=== PATIENT | female | born 1980 | race Caucasian/White ===

== ENCOUNTER 2016-07-15 10:22 | Inpatient (IN) | payer OTHER ==
[~2016-07-15] VITALS: Ht 154.9 cm; Wt 77.0 kg
[2016-07-15] VITALS (9 sets, daily range): BP systolic 103–144; BP diastolic 61–85
[2016-07-15 11:12] LABS: EOSINOPHIL (%) 0.7 % (0-5); EOSINOPHIL COUNT 0.1 K/uL (0-0.3); HEMATOCRIT 36.4 % (36.0-46.0); IMMATURE GRANULOCYTE (%) 0.7 % (0.0-0.7); IMMATURE GRANULOCYTE COUNT 0.1 K/uL; LYMPHOCYTE COUNT 2.1 K/uL (1.0-2.8); MCH 31.6 PG (29.0-34.0); MCHC 34.3 G/DL (30.0-36.0); MCV 91.9 FL (83-99); MEAN PLAT.VOLUME 10.8 uM^3 (9.5-12.4); MONOCYTE COUNT 0.4 K/uL (0-0.8); NEUTROPHIL (%) 74.7 % (45-76); PLATELET COUNT 233 K/uL (156-360); RBC DIS.WIDTH-CV 12.3 % (11.8-14.6); RED BLOOD COUNT 3.96 M/uL (3.80-5.20); WHITE BLOOD COUNT 10.7 K/uL (4.1-10.2)
[2016-07-15 13:12] LABS: AMPHETAMINE NEGATIVE (500 ng/mL); BARBITURATES NEGATIVE (200 ng/mL); BENZODIAZEPINES NEGATIVE (150 ng/mL); COCAINE NEGATIVE (150 ng/mL); INTERNAL CONTROLS VALID? YES; METHADONE PRESUMPTIVE POSITIVE (200 ng/mL); METHAMPHETAMINE NEGATIVE (500 ng/mL); OPIATES (MORPHINE) NEGATIVE (100 ng/mL); OXYCODONE NEGATIVE (100 ng/mL); PHENCYCLIDINE NEGATIVE (25 ng/mL); PROPOXYPHENE NEGATIVE (300 ng/mL); THC CANNABINOIDS NEGATIVE (50 ng/mL); TRICYCLIC ANTIDEPRESSANTS NEGATIVE (300 ng/mL)
[2016-07-16 00:40] VITALS: BP 106/65
[2016-07-16 02:45] VITALS: BP 102/54
[2016-07-16 08:00] VITALS: BP 132/76
[2016-07-16 08:56] LABS: EOSINOPHIL (%) 0.4 % (0-5); EOSINOPHIL COUNT 0.1 K/uL (0-0.3); HEMATOCRIT 35.4 % (36.0-46.0); IMMATURE GRANULOCYTE (%) 0.4 % (0.0-0.7); IMMATURE GRANULOCYTE COUNT 0.1 K/uL; INSTRUMENT ABS NEUTROPHIL CT 9.1 K/uL; LYMPHOCYTE COUNT 3.4 K/uL (1.0-2.8); MCH 30.4 PG (29.0-34.0); MCHC 32.8 G/DL (30.0-36.0); MCV 92.9 FL (83-99); MEAN PLAT.VOLUME 10.2 uM^3 (9.5-12.4); MONOCYTE (%) 7.1 % (3-12); NEUTROPHIL (%) 67.1 % (45-76); NEUTROPHIL COUNT 9.1 K/uL (1.8-6.4); PLATELET COUNT 235 K/uL (156-360); RBC DIS.WIDTH-CV 12.3 % (11.8-14.6); RBC DIS.WIDTH-SD 41.7 % (39-53); RED BLOOD COUNT 3.81 M/uL (3.80-5.20); WHITE BLOOD COUNT 13.6 K/uL (4.1-10.2)
[2016-07-16 11:24] VITALS: BP 118/69
[2016-07-16 15:18] VITALS: BP 138/86
[2016-07-16 19:27] VITALS: BP 157/80
[2016-07-17 06:55] VITALS: BP 126/73
[2016-07-17 07:42] VITALS: BP 139/89
[2016-07-17 11:25] VITALS: BP 136/79
[2016-07-17 15:35] VITALS: BP 137/77
[2016-07-17 23:21] VITALS: BP 132/74
[2016-07-18 07:30] VITALS: BP 127/86
[2016-07-18 15:19] VITALS: BP 137/83
[2016-07-18 19:48] VITALS: BP 122/65
[2016-07-18 22:52] VITALS: BP 139/75
[2016-07-19 07:41] VITALS: BP 141/80
[2016-07-19] MEDS ORDERED: ENDOCET 5-3251 EACH PO (13:43)
[2016-07-19] MEDS ORDERED: IBUPROFEN800 MG PO (13:43)
[2016-07-19] MEDS ORDERED: DOCUSATE SODIU100 MG PO (13:43)
[2016-07-19 15:20] VITALS: BP 133/76
== END 2016-07-19 22:30 | disposition home or self-care (01) | DRG 765 ==
LOC: LDRP-OP → 2WEST 10:23 → LDRP-OP 08-25 18:30
PROVIDERS: Obstetrics & Gynecology
PROC: 10D00Z1 Extraction of Products of Conception, Low, Open Approach (ICD-10-PCS; principal; 2016-07-15)
DX: O99.324 Drug use complicating childbirth (principal); F11.20 Opioid dependence, uncomplicated; O99.354 Diseases of the nervous system complicating childbirth; O09.523 Supervision of elderly multigravida, third trimester; Z37.0 Single live birth; Z3A.38 38 weeks gestation of pregnancy; O34.211 Maternal care for low transverse scar from previous cesarean delivery; O76 Abnormality in fetal heart rate and rhythm complicating labor and delivery; G89.29 Other chronic pain; E66.9 Obesity, unspecified; Z68.31 Body mass index [BMI] 31.0-31.9, adult
CPT/HCPCS: 80306 90; 85025; 86900; 86901; 88307; J0690; J1100; J1170; J2175; J2270; J2274; J2405; J7120

== ENCOUNTER → 2016-08-23 | Outpatient (CLI) | payer OTHER ==
[~2016-08-23] MED LIST: DOCUSATE SODIU100 MG PO; ENDOCET 5-3251 EACH PO; IBUPROFEN800 MG PO
== END | disposition home or self-care (01) ==
LOC: LAC 13:25
DX: O92.13 Cracked nipple associated with lactation (principal); O92.29 Other disorders of breast associated with pregnancy and the puerperium; O92.79 Other disorders of lactation
CPT/HCPCS: G0463